=== PATIENT | male | born 1985 | race Two or more races ===

== ENCOUNTER → 2025-03-11 | Day surgery (SDC) | payer MEDICAID ==
[~2025-03-11] VITALS: Ht 177.8 cm; Wt 83.5 kg
[~2025-03-11] MED LIST: LIDOCAINE 1% INJ PF 5ML AMP ONE; LIDOCAINE 2% (LOCAL ANESTH.) PF 5ml SDV ONE; OMEP1CAP70 PO; PROPOFOL 10 MG/ML 20 ML IV ONE
[2025-03-11 11:07] VITALS: PULSE 76; RESP 15; TEMP 98.9; O2SAT 97
--- NOTE | 2025-03-11 11:07 | DVHHP2 ---
GI H&P Pre-Op Assessment Date: 03/11/25 Chief complaint: Epigastric pain and heartburn HPI: per clinic note Past medical history: per clinic note Past surgical history: per clinic note Family history: per clinic note Physical exam: General: NAD, AAOX3 HEENT: PERRL, no scleral icterus, normal hearing, gums without lesions or bleeding, oropharynx clear without erythema or exudate. Neck: Supple without enlargement of the thyroid, or lymphadenopathy. Chest: Normal size and shape, no tenderness, lung frank clear to auscultation and percussion, nonlabored breathing. Heart: RRR, no murmur Abdomen: non-distended, no tenderness to palpation, +BS, no hepatosplenomegaly Extremities: no edema Neurological: CN II-XII intact, sensation intact in all extremities, 5+ strength in all extremities Skin: No rashes, No jaundice Assessment: - Epigastric pain and heartburn Plan: - EGD - Risks (bleeding, infection, perforation, reaction to sedation medications and cardiopulmonary arrest) and benefit of the procedure were explained to patient. Patient agrees to undergo the procedure. SHIRA BARBER MD Mar 11, 2025 11:07
--- NOTE | 2025-03-11 11:09 | DVHOP2 ---
Operative Report DATE OF OPERATION: 03/11/25 PROCEDURE: Upper Endoscopy. PREOPERATIVE INDICATION: The patient is a 39 -year-old male undergoing endoscopy for epigastric pain and heartburn. POSTOPERATIVE DIAGNOSES: 1. Moderate gastritis. PROCEDURE PERFORMED BY: Gio Chavez SCOPE: Olympus videoendoscope. ASA CLASS: 2 PREOPERATIVE MEDICATIONS: MAC with Santana HANKS PROCEDURE IN DETAIL: After obtaining an informed consent, the patient was placed on his back. The patient was then sedated with the above medications. A bite block was placed between his teeth. The endoscope was then passed through the oropharynx, into the esophagus, and through the stomach and pylorus up to the second and third part of the duodenum. The duodenum was normal in appearance. There was moderate gastritis. Gastric biopsy were obtained using cold forceps. The GE junction was normal in appearance at 36 cm. The esophagus was normal in appearance. The endoscope was then withdrawn. The patient tolerated the procedure well without difficulty. COMPLICATIONS : None SPECIMENS: Gastric biopsies DISPOSITION: D/C to home PLAN: 1. Await for biopsy result 2. Continue with Protonix. GIO CHAVEZ MD Mar 11, 2025 11:09
--- NOTE | 2025-03-11 11:09 | DVHDS2 ---
Physician Discharge Progress N Final Diagnosis: Gastritis Operations or Procedures: Operations or Procedures EGD with cold biopsy Condition on Discharge: Good Disposition: Home Discharge Instructions: Diet: Regular Activity: No Restrictions, As Tolerated Medications: Resume previous home medications Follow Up Care: Discharge Statement: "Patient was advised to return to the ER or call 911 if any headaches, dizziness, shortness of breath, chest pain, abdominal pain, bleeding, fevers, or worsening of medical condition. Patient was counseled about treatment plan, medications, possible side effects, patientverbalized understanding. All questions were answered to the best of my ability. This discharge took greater then 30 minutes in planning, reviewing documentation, counseling the patient, and discussing with other team members." SHIRA BARBER MD Mar 11, 2025 11:09
[2025-03-11 11:22] VITALS: BP 120/76; PULSE 64; RESP 12; O2SAT 95
== END | disposition home or self-care (01) ==
LOC: EDSEX 09:38 → GI 09:38
PROVIDERS: ATTEND Internal Medicine Gastroenterology
DX: R10.13 Epigastric pain (principal); K29.50 Unspecified chronic gastritis without bleeding; B96.81 Helicobacter pylori [H. pylori] as the cause of diseases classified elsewhere; K21.9 Gastro-esophageal reflux disease without esophagitis; K76.0 Fatty (change of) liver, not elsewhere classified; I34.1 Nonrheumatic mitral (valve) prolapse; E66.3 Overweight; Z68.26 Body mass index [BMI] 26.0-26.9, adult; Z79.899 Other long term (current) drug therapy
CPT/HCPCS: 43239; 88305; 88342; J2003; J2704

== ENCOUNTER 2025-04-08 10:54 | Day surgery (SDC) | payer MEDICAID ==
[2025-04-07 10:42] LABS: Hematocrit 44.0 % (41.0-53.0); Hemoglobin 15.2 g/dL (13.5-17.5); Mean Corpuscular Hemoglobin 30.9 pg (28.0-32.0); Mean Corpuscular Volume 89.5 fL (80.0-100.0); Nucleated Red Blood Cells % 0.1 %
[2025-04-07 10:54] LABS: Urine Protein, UAD Negative (Negative)
[2025-04-07 11:12] LABS: INR 0.97 (0.9-1.15); Partial Thromboplastin Time 28.3 SEC (24.5-34.5); Prothrombin Time 10.3 sec (9.3-11.8)
[2025-04-07 11:18] LABS: Albumin 4.2 g/dL (3.2-4.8); Alkaline Phosphatase 72 U/L (46-116); Anion Gap 8 (5-15); BUN/Creatinine Ratio 17.5 (10.0-20.0); Blood Urea Nitrogen 14 mg/dL (9-23); Calcium 8.8 mg/dL (8.7-10.4); Carbon Dioxide 30 mmol/L (20-31); Chloride 104 mmol/L (98-107); Glucose 88 mg/dL (74-106); Potassium 4.1 mmol/L (3.5-5.1); Sodium 142 mmol/L (136-145); Total Protein 7.8 g/dL (5.7-8.2)
[2025-04-07 11:19] LABS: Alanine Aminotransferase 79 U/L (7-40); Bilirubin, Total 0.6 mg/dL (0.2-1.0)
[~2025-04-08] VITALS: Ht 177.8 cm; Wt 83.5 kg
[~2025-04-08 10:54] MED LIST changes: -LIDOCAINE 1% INJ PF 5ML AMP ONE; -LIDOCAINE 2% (LOCAL ANESTH.) PF 5ml SDV ONE; -PROPOFOL 10 MG/ML 20 ML IV ONE
[2025-04-08] MEDS ORDERED: fentaNYL CITRATE 100 MCG/2 ML VL ONE (14:13)
[2025-04-08] MEDS ORDERED: PROPOFOL 10 MG/ML 20 ML IV ONE (14:13)
--- NOTE | 2025-04-08 14:26 | DVHHP2 ---
GI H&P Pre-Op Assessment Date: 04/08/25 Chief complaint: blood in stool HPI: per clinic note Past medical history: per clinic note Past surgical history: per clinic note Family history: per clinic note Physical exam: General: NAD, AAOX3 HEENT: PERRL, no scleral icterus, normal hearing, gums without lesions or ble eding, oropharynx clear without erythema or exudate. Neck: Supple without enlargement of the thyroid, or lymphadenopathy. Chest: Normal size and shape, no tenderness, lung frank clear to auscultation and percussion, nonlabored breathing. Heart: RRR, no murmur Abdomen: non-distended, no tenderness to palpation, +BS, no hepatosplenomegaly Extremities: no edema Neurological: CN II-XII intact, sensation intact in all extremities, 5+ strength in all extremities Skin: No rashes, No jaundice Assessment: - blood in stool Plan: - Colonoscopy - Risks (bleeding, infection, perforation, reaction to sedation medications and cardiopulmonary arrest) and benefit of the procedure were explained to patient. Patient agrees to undergo the procedure. SHIRA BARBER MD Apr 08, 2025 14:25
--- NOTE | 2025-04-08 14:27 | DVHDS2 ---
Physician Discharge Progress N Final Diagnosis: Internal hemorrhoids Operations or Procedures: Operations or Procedures Colonoscopy Condition on Discharge: Good Disposition: Home Discharge Instructions: Diet: Regular Activity: No Restrictions, As Tolerated Medications: Resume previous home medications Follow Up Care: Discharge Statement: "Patient was advised to return to the ER or call 911 if any headaches, dizziness, shortness of breath, chest pain, abdominal pain, bleeding, fevers, or worsening of medical condition. Patient was counseled about treatment plan, medications, possible side effects, patientverbalized understanding. All questions were answered to the best of my ability. This discharge took greater then 30 minutes in planning, reviewing documentation, counseling the patient, and discussing with other team members." SHIRA BARBER MD Apr 08, 2025 14:27
--- NOTE | 2025-04-08 14:27 | DVHOP2 ---
Operative Report DATE OF OPERATION: 04/08/25 PROCEDURE: Colonoscopy. PREOPERATIVE INDICATION: The patient is a 39 -year-old male undergoing colonoscopy for blood in the stool. POSTOPERATIVE DIAGNOSES: 1. Internal hemorrhoids PROCEDURE PERFORMED BY: Gio Chavez M.D. SCOPE: Olympus videocolonoscope. ASA CLASS: 3 PREOPERATIVE MEDICATIONS: MAC with Dr Pate PROCEDURE IN DETAIL: After obtaining an informed consent, the patient was placed on left lateral decubitus position. He was then sedated with the above medications. A rectal examination was performed that was normal. The colonos cope was then passed through the anus into the rectosigmoid and through the descending, transverse, and ascending colon up to the cecum with visualization of the appendiceal orifice, base of the cecum and the ileocecal valve. No mass or polyp was observed. There were internal hemorrhoids. The colonoscope was then withdrawn. The patient tolerated the procedure well without difficulty. WITHDRAWAL TIME: 6 minutes QUALITY OF THE PREP: [place] Bowel Prep score: 7 COMPLICATIONS : None SPECIMENS: None DISPOSITION: D/C to home PLAN: 1. F/U in GI clinic GIO CHAVEZ MD Apr 08, 2025 14:27
[2025-04-08 14:28] VITALS: PULSE 69; RESP 12; TEMP 97.2
[2025-04-08 14:58] VITALS: BP 117/87; PULSE 63; RESP 13; O2SAT 95
== END 2025-04-08 15:10 | disposition home or self-care (01) ==
LOC: GI 10:54
PROVIDERS: ATTEND Internal Medicine Gastroenterology
DX: K92.1 Melena (principal); K64.8 Other hemorrhoids; K21.9 Gastro-esophageal reflux disease without esophagitis; Z79.899 Other long term (current) drug therapy
CPT/HCPCS: 36415; 45378; 80053; 81001; 85025; 85610; 85730; J2704; J3010; J7030